=== PATIENT | male | born 1990 ===

== ENCOUNTER 2017-09-23 16:49 | Emergency (ER) | payer SELFPAY ==
[~2017-09-23] VITALS: Ht 170.2 cm; Wt 72.8 kg
[2017-09-23 16:58] VITALS: BP 128/78
== END 2017-09-23 17:39 | disposition left against medical advice (07) ==
LOC: ED 17:33
DX: Z00.01 Encounter for general adult medical examination with abnormal findings (principal); M25.561 Pain in right knee
CPT/HCPCS: 99281